=== PATIENT | male | born 1975 | race Caucasian/White ===

== ENCOUNTER 2019-03-27 05:36 | Inpatient (IN) | payer MEDICAID ==
[~2019-03-27] VITALS: Ht 162.6 cm; Wt 63.6 kg
[~2019-03-27 05:36] MED LIST: ACET325T33 PO; ASA400 PO; HYDR-3601 PO; IBUP-1542 PO; KETO10TA PO; LACT1CAP57 PO; LEVO500T10 PO; METR-122 PO; PANT40TA4 PO; PRED10TA PO
[2019-03-27 05:41] VITALS: Ht 162.6 cm; Wt 63.6 kg
[2019-03-27] MEDS ORDERED: ONDANSETRON 4 MG INJ IV STA ×2 (06:32→08:33)
[2019-03-27] MEDS ORDERED: HYDROmorphONE 1 MG/ML SYG IV STA ×2 (06:32→08:33)
[2019-03-27] MEDS ORDERED: SOD CHLORIDE 0.9% 1,000 ML IV STA (06:32)
[2019-03-27] MEDS ORDERED: IOHEXOL 300MG/ML 150 ML BTL ONE (07:02)
[2019-03-27] MEDS ORDERED: SOD CHLORIDE 0.9% 100 ML ONE (07:02)
[2019-03-27] MEDS ORDERED: METHYLPREDNISOLONE 125 MG INJ IV ONE (08:30)
[2019-03-27] MEDS ORDERED: ERTAPENEM SODIUM 1 GM in SOD CHLORIDE 0.9% 100 ML IVPB ONE (08:30)
[2019-03-27] MEDS ORDERED: SOD CHLORIDE 0.9% 1,000 ML IV SCH (08:42)
[2019-03-27] MEDS ORDERED: ONDANSETRON 4 MG INJ IV PRN (09:00)
[2019-03-27] MEDS ORDERED: ACETAMINOPHEN 325 MG TAB PO PRN (09:00)
[2019-03-27 10:10] VITALS: BP 126/68; RESP 19
[2019-03-27] MEDS: HYDROmorphONE 1 MG/ML SYG IV PRN ×3 (11:03→20:16)
[2019-03-27] MEDS: MESALAMINE (EC) 400 MG CAP PO SCH ×2 (12:09→20:16)
[2019-03-27] MEDS: metroNIDAZOLE 500 MG/NS (PMX) 100 ML IVPB SCH ×2 (13:23→21:05)
[2019-03-27 13:25] VITALS: BP 121/62; PULSE 78; RESP 19
[2019-03-27 20:15] VITALS: BP 124/78; PULSE 73; RESP 17
[2019-03-28] MEDS: HYDROmorphONE 1 MG/ML SYG IV PRN ×6 (01:02→22:32)
[2019-03-28 02:50] VITALS: BP 114/71; PULSE 72; RESP 19
[2019-03-28] MEDS: PANTOPRAZOLE (EC) 40 MG TAB PO SCH (05:56)
[2019-03-28] MEDS: metroNIDAZOLE 500 MG/NS (PMX) 100 ML IVPB SCH ×3 (05:57→21:07)
[2019-03-28 07:51] VITALS: BP 118/70; PULSE 70; RESP 18
[2019-03-28] MEDS: LEVOFLOXACIN 500MG/D5W (PMX) 100 ML IVPB SCH (10:13)
[2019-03-28] MEDS: MESALAMINE (EC) 400 MG CAP PO SCH ×3 (10:13→21:00)
[2019-03-28] MEDS: METHYLPREDNISOLONE 40 MG INJ IV SCH ×2 (13:58→21:07)
[2019-03-28 14:37] VITALS: BP 134/79; PULSE 72; RESP 18
[2019-03-28 20:05] VITALS: BP 128/71; PULSE 83; RESP 17
[2019-03-29 02:11] VITALS: BP 125/74; PULSE 65; RESP 18
[2019-03-29] MEDS: HYDROmorphONE 1 MG/ML SYG IV PRN ×3 (02:40→11:26)
[2019-03-29] MEDS: metroNIDAZOLE 500 MG/NS (PMX) 100 ML IVPB SCH ×3 (05:02→21:51)
[2019-03-29] MEDS: METHYLPREDNISOLONE 40 MG INJ IV SCH (05:02)
[2019-03-29] MEDS: PANTOPRAZOLE (EC) 40 MG TAB PO SCH (05:02)
[2019-03-29 07:57] VITALS: BP 123/72; PULSE 67; RESP 18
[2019-03-29] MEDS: LEVOFLOXACIN 500MG/D5W (PMX) 100 ML IVPB SCH (09:26)
[2019-03-29] MEDS: MESALAMINE (EC) 400 MG CAP PO SCH ×3 (09:26→20:45)
[2019-03-29] MEDS ORDERED: ONDANSETRON 4 MG INJ IV PRN (12:00)
[2019-03-29 15:15] VITALS: BP 116/65; PULSE 73; RESP 18
[2019-03-29] MEDS ORDERED: HYDROCODONE/APAP (5/325) TAB PO PRN (17:30)
[2019-03-29 19:24] VITALS: BP 142/83; PULSE 64; RESP 16
[2019-03-29] MEDS: predniSONE 10 MG TAB PO SCH (20:45)
[2019-03-30 02:00] VITALS: BP 137/80; PULSE 60; RESP 18
[2019-03-30] MEDS: metroNIDAZOLE 500 MG/NS (PMX) 100 ML IVPB SCH ×2 (05:34→13:40)
[2019-03-30] MEDS: PANTOPRAZOLE (EC) 40 MG TAB PO SCH (05:34)
[2019-03-30] MEDS: MESALAMINE (EC) 400 MG CAP PO SCH (10:06)
[2019-03-30] MEDS: LEVOFLOXACIN 500MG/D5W (PMX) 100 ML IVPB SCH (10:06)
[2019-03-30] MEDS: predniSONE 10 MG TAB PO SCH (10:07)
[2019-03-30 10:25] VITALS: BP 137/84; PULSE 84; RESP 18
[2019-03-30] MEDS ORDERED: CYANOCOBALAMIN 1000 MCG INJ IM ONE (13:00)
[2019-03-30 14:54] VITALS: BP_SYST 115; BP_SYST 135; BP_DIAS 51; BP_DIAS 77; PULSE 82; PULSE 92; RESP 19
[2019-03-30] MEDS ORDERED: SOD FERRIC GLUC COMPLX 125 MG in SOD CHLORIDE 0.9% 100 ML IVPB ONE (15:00)
== END 2019-03-30 17:05 | disposition home or self-care (01) | DRG 386 ==
LOC: E/R 05:36 → MS1 08:43
PROVIDERS: ADMIT Family Medicine; ATTEND Family Medicine
DX: K51.90 Ulcerative colitis, unspecified, without complications (principal); N12 Tubulo-interstitial nephritis, not specified as acute or chronic; D72.829 Elevated white blood cell count, unspecified; D50.9 Iron deficiency anemia, unspecified; K21.9 Gastro-esophageal reflux disease without esophagitis; M25.561 Pain in right knee; Z91.14 Patient's other noncompliance with medication regimen
CPT/HCPCS: 36415; 74177; 80048; 80053; 80076; 81001; 81003; 83540; 83690; 83735; 85025; 85651; 86140; 87045; 87075; 87086; 87205; 96374; 96375; 96376; J1170; J1335; J1956; J2405; J2916; J2920; J2930; J3420; J7030; J7512; Q9967